=== PATIENT | female | born 1995 | race Caucasian/White ===

== ENCOUNTER 2017-03-22 14:46 | Emergency (ER) | payer OTHER ==
[~2017-03-22] VITALS: Ht 172.7 cm; Wt 105.5 kg
[2017-03-22 14:49] VITALS: BP 138/72; PULSE 104; TEMP 97.8
[2017-03-22] MEDS ORDERED: AMOXICILLIN 50500 MG PO (15:26)
== END 2017-03-22 15:37 | disposition home or self-care (01) ==
LOC: COL.ER 14:46
DX: K08.89 Other specified disorders of teeth and supporting structures (principal); F17.210 Nicotine dependence, cigarettes, uncomplicated

== ENCOUNTER → 2017-05-13 | Outpatient (CLI) | payer OTHER ==
[~2017-05-13] MED LIST: AMOXICILLIN 50500 MG PO
== END ==
LOC: BHSO 11:00
DX: F33.1 Major depressive disorder, recurrent, moderate (principal)